=== PATIENT | male | born 1950 | race Caucasian/White ===

== ENCOUNTER 2019-09-28 02:54 | Inpatient (IN) | payer MEDICARE, BC ==
[2019-09-28] MEDS ORDERED: IPRATROPIUM-ALBUTEROL 3 ML NEB INHALATION PRN (03:05)
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
[2019-09-28 06:36] LABS: Glucose,Whole Blood 186 mg/dL (75-99)
[2019-09-28] MEDS: GLIMEPIRIDE 2 MG TAB PO SCH (06:36)
[2019-09-28] MEDS: ATORVASTATIN 20 MG TAB PO SCH (07:35)
[2019-09-28] MEDS: amLODIPine 10 MG TAB PO SCH (07:35)
[2019-09-28] MEDS: TAMSULOSIN 0.4 MG CAP.ER.24H PO SCH (07:36)
[2019-09-28] MEDS: ASPIRIN 81 MG PO SCH (07:36)
[2019-09-28] MEDS ORDERED: predniSONE 20 MG TAB PO SCH (09:00)
[2019-09-28] MEDS ORDERED: metFORMIN 500 MG TAB PO SCH (09:00)
[2019-09-28] MEDS ORDERED: methylPREDNISolone SOD SUCCI 125 MG/2 ML VIAL IV SCH (09:00)
[2019-09-28] MEDS: methylPREDNISolone SOD SUCCI 125 MG/2 ML VIAL IV SCH ×2 (09:22→17:00)
[2019-09-28] MEDS: FUROSEMIDE 10 MG/ML 4 ML VIAL IV SCH (10:00)
--- NOTE | 2019-09-28 10:23 | XR ---
EXAMINATION TYPE: XR chest 2V DATE OF EXAM: 09/28/2019 HISTORY: dyspnea. REFERENCE: NONE. FINDINGS: There is increased density in the right middle lobe as well as the left lung base. This lik miranda represents limited pneumonia. Heart size upper limits of normal. Pleural spaces are clear. IMPRESSION: BILATERAL INFILTRATES.
[2019-09-28 11:40] LABS: Glucose,Whole Blood 162 mg/dL (75-99)
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
[2019-09-28] MEDS: IPRATROPIUM-ALBUTEROL 3 ML NEB INHALATION SCH ×2 (12:03→19:02)
[2019-09-28] MEDS: INSULIN ASPART (NovoLOG) 100 UNIT/ML VIAL SQ SCH ×3 (12:19→20:58)
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
--- NOTE | 2019-09-28 13:38 | P.PN ---
Progress Note - Text Progress Note Date: 09/28/19 Consult for PV work up appreciated. Labs pending, formal consult in AM.
[2019-09-28 13:55] LABS: Basophils % (A) 0 %; Eosinophils # (A) 0.1 k/uL (0-0.7); Eosinophils % (A) 1 %; Lymphocytes # (A) 0.8 k/uL (1.0-4.8); Lymphocytes % (A) 9 %; MCH 32.1 pg (25.0-35.0); MCHC 34.2 g/dL (31.0-37.0); MCV 93.8 fL (80.0-100.0); Mean Platelet Volume 8.9; Monocytes # (A) 0.2 k/uL (0-1.0); Monocytes % (A) 3 %; Neutrophils # (A) 8.3 k/uL (1.3-7.7); Neutrophils % (A) 88 %; Platelet Count 141 k/uL (150-450); Potassium 4.6 mmol/L (3.5-5.1); RBC 5.98 m/uL (4.30-5.90); RDW 13.4 % (11.5-15.5); WBC 9.4 k/uL (3.8-10.6)
[2019-09-28 13:57] LABS: HCT 56.1 % (39.0-53.0)
[2019-09-28 13:59] LABS: HGB 19.2 gm/dL (13.0-17.5)
[2019-09-28 14:02] LABS: Reticulocyte % 2.9 % (0.5-2.0)
--- NOTE | 2019-09-28 15:26 | CT ---
CT CHEST FOR PULMONARY EMBOLISM. EXAMINATION TYPE: CT angio chest DATE OF EXAM: 09/28/2019 INDICATION: Hypoxemia, suspect PE. CT DLP: 666.3 mGycm, Automated exposure control for dose reduction was used. CONTRAST: Patient injected with 100 mL of Isovue 370. COMPARISON: None TECHNIQUE: CT of the chest is performed on a spiral scan at 2 mm thick sections. Study is performed with intravenous contrast timed for evaluation for pulmonary embolism. This will limit additional po rtions of the evaluation. 3-D MIP images reconstructed by the technologist are reviewed on the compu ter in the coronal and sagittal planes. FINDINGS: No persistent filling defects are evident to suggest an acute pulmonary embolism. No mediastinal or hilar adenopathy enlarged by CT criteria is evident. The ascending aorta diameter at the level of the main pulmonary artery is 3.5 cm. The main pulmonary artery diameter at the bifur cation is 3.2 cm. Mild compressive atelectasis is present within the dependent lung bases. Limited CT section through the upper abdomen are unremarkable. IMPRESSIONS: 1. No suspicious changes to suggest acute pulmonary embolism.
[2019-09-28 16:53] LABS: Glucose,Whole Blood 200 mg/dL (75-99)
[2019-09-28] MEDS: BUDESONIDE 0.5 MG/2 ML NEBU INHALATION SCH (19:02)
[2019-09-28 20:53] LABS: Glucose,Whole Blood 259 mg/dL (75-99)
[2019-09-28] MEDS: HEPARIN SODIUM,PORCINE 5,000 UNIT/ML 1 ML VIAL SQ SCH (20:59)
[2019-09-29] MEDS: methylPREDNISolone SOD SUCCI 125 MG/2 ML VIAL IV SCH ×5 (00:15→22:54)
[2019-09-29 06:00] LABS: Glucose,Whole Blood 225 mg/dL (75-99)
[2019-09-29] MEDS: INSULIN ASPART (NovoLOG) 100 UNIT/ML VIAL SQ SCH ×6 (06:11→22:55)
[2019-09-29] MEDS: PANTOPRAZOLE 40 MG TABLET PO SCH (06:11)
[2019-09-29] MEDS: GLIMEPIRIDE 2 MG TAB PO SCH (06:11)
[2019-09-29] MEDS ORDERED: INSULIN DETEMIR (LEVEMIR) 100 UNIT/ML SYR SQ SCH (07:00)
[2019-09-29 07:41] LABS: ALT 24 U/L (4-49); AST 25 U/L (17-59); African American GFR (CKD) >90 (>60 ml/min/1.73 sqM); Alkaline Phosphatase 68 U/L (38-126); Anion Gap 9 mmol/L; Blood Urea Nitrogen 44 mg/dL (9-20); Carbon Dioxide 26 mmol/L (22-30); Chloride 99 mmol/L (98-107); Glucose 222 mg/dL (74-99); Non-African American GFR(CKD) 79 (>60 ml/min/1.73 sqM); Potassium 4.4 mmol/L (3.5-5.1); Sodium 134 mmol/L (137-145); Total Protein 7.1 g/dL (6.3-8.2)
[2019-09-29 07:46] LABS: HCT 54.4 % (39.0-53.0); HGB 18.1 gm/dL (13.0-17.5); MCHC 33.2 g/dL (31.0-37.0); MCV 93.4 fL (80.0-100.0); Mean Platelet Volume 8.6; Platelet Count 159 k/uL (150-450); RBC 5.82 m/uL (4.30-5.90); RDW 13.4 % (11.5-15.5); WBC 11.4 k/uL (3.8-10.6)
[2019-09-29] MEDS: ASPIRIN 81 MG PO SCH (08:56)
[2019-09-29] MEDS: HEPARIN SODIUM,PORCINE 5,000 UNIT/ML 1 ML VIAL SQ SCH ×2 (08:56→22:55)
[2019-09-29] MEDS: amLODIPine 10 MG TAB PO SCH (08:56)
[2019-09-29] MEDS: FUROSEMIDE 10 MG/ML 4 ML VIAL IV SCH (08:56)
[2019-09-29] MEDS: TAMSULOSIN 0.4 MG CAP.ER.24H PO SCH (08:56)
[2019-09-29] MEDS: ATORVASTATIN 20 MG TAB PO SCH (08:56)
[2019-09-29] MEDS: IPRATROPIUM-ALBUTEROL 3 ML NEB INHALATION SCH ×3 (09:10→20:38)
[2019-09-29] MEDS: BUDESONIDE 0.5 MG/2 ML NEBU INHALATION SCH ×2 (09:10→20:37)
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
--- NOTE | 2019-09-29 11:58 | ECHOF ---
Referral Reason:LVF MEASUREMENTS -------- HEIGHT: 172.7 cm WEIGHT: 112.0 kg BP: 144/79 IVSd: 1.0 cm (0.6 - 1.1) LVIDd: 4.3 cm (3.9 - 5.3) LVPWd: 1.2 cm (0.6 - 1.1) IVSs: 1.8 cm LVIDs: 1.4 cm LVPWs: 1.5 cm LAESV Index (A-L): 21.01 ml/m Ao Diam: 3.1 cm (2.0 - 3.7) AV Cusp: 1.8 cm (1.5 - 2.6) LA Diam: 2.9 cm (2.7 - 3.8) MV EXCURSION: 16.226 mm (> 18.000) MV EF SLOPE: 83 mm/s (70 - 150) EPSS: 0.6 cm MV E Philip: 0.94 m/s MV DecT: 245 ms MV A Philip: 0.83 m/s MV E/A Ratio: 1.13 RAP: 5.00 mmHg RVSP: 15.17 mmHg FINDINGS -------- Sinus rhythm. This was a technically difficult study with suboptimal views. The left ventricular size is normal. Left ventricular wall thickness is normal. Overall left vent ricular systolic function is normal with, an EF between 55 - 60 %. The diastolic filling pattern is normal for the age of the patient 13.71. The right ventricle is normal in size. The left atrial size is normal. Normal LA size by volume 22+/-6 ml/m2. The right atrial size is normal. Lumason used Interatrial and interventricular septum intact. The aortic valve is trileaflet and appears structurally normal. The mitral valve is normal. Mild mitral regurgitation is present. The tricuspid valve appears structurally normal. Mild tricuspid regurgitation present. Right vent ricular systolic pressure is normal at < 35 mmHg. There is no pulmonic regurgitation present. The aortic root size is normal. IVC Not well visulized. There is no pericardial effusion. CONCLUSIONS -------- 1. Sinus rhythm. 2. This was a technically difficult study with suboptimal views. 3. The left ventricular size is normal. 4. Left ventricular wall thickness is normal. 5. Overall left ventricular systolic function is normal with, an EF between 55 - 60 %. 6. The diastolic filling pattern is normal for the age of the patient 13.71 7. The right ventricle is normal in size. 8. The left atrial size is normal. 9. Normal LA size by volume 22+/-6 ml/m2. 10. The right atrial size is normal. 11. Lumason used 12. Interatrial and interventricular septum intact. 13. The aortic valve is trileaflet and appears structurally normal. 14. The mitral valve is normal. 15. Mild mitral regurgitation is present. 16. The tricuspid valve appears structurally normal. 17. Mild tricuspid regurgitation present. 18. Right ventricular systolic pressure is normal at < 35 mmHg. 19. There is no pulmonic regurgitation present. 20. The aortic root size is normal. 21. IVC Not well visulized. 22. There is no pericardial effusion. MINER: Beatriz Arango RDCS
[2019-09-29 12:01] LABS: Hemoglobin A1C 6.6 % (4.0-6.0)
[2019-09-29 12:04] LABS: Glucose,Whole Blood 258 mg/dL (75-99)
[2019-09-29] MEDS: LINAGLIPTIN 5 MG TABLET PO SCH (12:12)
--- NOTE | 2019-09-29 13:24 | P.CONS ---
History of Present Illness - Reason for Consult Consult date: 09/29/19 PV Requesting physician: Rolando Massey - Chief Complaint SOB, COPD exacerbation - History of Present Illness Mr He is a very pleasant 69-year-old male who we've been asked to see regarding polycythemia. 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 He states shortness of breath on exertion 1 month, otherwise a normal state of health. Denies unintentional weight loss, changes in his appetite, purulent or bloody expectoration, nausea or vomiting, abdominal pain or cramping, acute changes in bowel or bladder habits. Review of Systems 14 point review of systems is negative except as stated in HPI Past Medical History Past Medical History: COPD, Diabetes Mellitus, Hyperlipidemia, Hypertension, Pulmonary Embolus (PE) History of Any Multi-Drug Resistant Organisms: None Reported Past Surgical History: Joint Replacement, Orthopedic Surgery Past Psychological History: No Psychological Hx Reported Smoking Status: Former smoker Past Alcohol Use History: Occasional Additional Past Alcohol Use History / Comment(s): The patient was a smoker for 45 years of 2-3 packs per day and quit 10 years ago. He denies any marijuana or illicit drug use. He drinks alcohol occasionally. He is and lives at home with his . He is retired from [employer]. Past Drug Use History: None Reported - Past Family History Father Additional Family Medical History / Comment(s): Father at age 73 from colon cancer. Mother Additional Family Medical History / Comment(s): Mother at age 80 from heart failure. Brother(s) Additional Family Medical History / Comment(s): The patient has 1 brother that has from consultations from obesity. 2 brothers are alive with no major medical problems. 2 sisters are are alive with no major medical problems. Patient has 5 children with no major medical problems. Medications and Allergies Home Medications Medication Instructions Recorded Confirmed Type Aspirin 81 mg PO DAILY 09/28/19 09/28/19 History Cinnamon Bark [Cinnamon] 1,000 mg PO DAILY 09/28/19 09/28/19 History Glimepiride [Amaryl] 4 mg PO [id number] 09/28/19 09/28/19 History Glucosamine/Chondr Zimmer A Sod [Osteo 1 each PO BID 09/28/19 09/28/19 History Bi-Flex Caplet] Ibuprofen 1,000 mg PO BID 09/28/19 09/28/19 History Lisinopril-Hctz 20-25 mg 1 tab PO DAILY 09/28/19 09/28/19 History [Zestoretic 20-25] Lovastatin [Mevacor] 20 mg PO Q48H 09/28/19 09/28/19 History Nadolol [Corgard] 80 mg PO DAILY 09/28/19 09/28/19 History Tamsulosin [Flomax] 0.4 mg PO DAILY 09/28/19 09/28/19 History amLODIPine [Norvasc] 10 mg PO DAILY 09/28/19 09/28/19 History Allergies Allergy/AdvReac Type Severity Reaction Status Date / Time codeine Allergy Unknown Verified 09/28/19 03:03 Childhood Penicillins Allergy Unknown Verified 09/28/19 03:03 Childhood Physical Exam Vitals: Vital Signs Temp Pulse Pulse Resp BP Pulse Ox 09/29/19 12:00 63 18 168/73 92 L 09/29/19 09:22 68 09/29/19 09:10 67 94 L 09/29/19 08:00 67 18 163/70 92 L 09/29/19 04:00 98.1 F 65 20 144/79 95 09/29/19 03:50 65 18 09/28/19 23:53 98.0 F 64 16 152/65 94 L 09/28/19 20:05 97.9 F 66 18 151/60 91 L 09/28/19 19:19 62 18 09/28/19 19:03 68 18 09/28/19 16:00 98.1 F 73 20 168/65 90 L Intake and Output 09/28/19 09/29/19 09/29/19 22:59 06:59 14:59 Intake Total 236 230 Output Total 675 1450 500 Balance -397 -3397 -787 Intake: Oral 236 230 Output: Urine 675 1450 500 Other: Voiding Method Urinal Urinal # Voids 3 2 Weight 112.2 kg - Constitutional mio complexion General appearance: cooperative, no acute distress, obese - EENT Eyes: anicteric sclerae, EOMI ENT: hearing grossly normal, normal oropharynx - Neck Neck: no lymphadenopathy - Respiratory Respiratory: bilateral: CTA, diminished - Cardiovascular mild fingernail clubbing Rhythm: regular Heart sounds: normal: S1, S2 Abnormal Heart Sounds: no systolic murmur, no diastolic murmur, no rub, no S3 Gallop, no S4 Gallop, no click, no other leg Peripheral Edema: bilateral: None - Gastrointestinal General gastrointestinal: no absent bowel sounds, no decreased bowel sounds, no distended, no hepatomegaly, no hyperactive bowel sounds, normal bowel sounds, no organomegaly, no rigid, no scaphoid, soft, no splenomegaly, no tenderness, no umbilical hernia, no ventral hernia - Integumentary Integumentary: flushed - Neurologic Neurologic: CNII-XII intact - Musculoskeletal Musculoskeletal: strength equal bilaterally - Psychiatric Psychiatric: A&O x's 3, appropriate affect, intact judgment & insight Results CBC & Chem 7: 09/29/19 05:50 09/29/19 05:49 Labs: Abnormal Lab Results - Last 24 Hours (Table) 09/28/19 09/28/19 09/28/19 Range/Units 13:25 13:25 13:25 WBC (3.8-10.6) k/uL RBC 5.98 H (4.30-5.90) m/uL Hgb 19.2 H* (13.0-17.5) gm/dL Hct 56.1 H (39.0-53.0) % Plt Count 141 L (150-450) k/uL Neutrophils # 8.3 H (1.3-7.7) k/uL Lymphocytes # 0.8 L (1.0-4.8) k/uL Retic Count (0.5-2.0) % Sodium 131 L (137-145) mmol/L Chloride 94 L (98-107) mmol/L Carbon Dioxide 19 L (22-30) mmol/L BUN 41 H (9-20) mg/dL Glucose 172 H (74-99) mg/dL POC Glucose (mg/dL) (75-99) mg/dL Hemoglobin A1c 6.6 H (4.0-6.0) % 09/28/19 09/28/19 09/28/19 Range/Units 13:25 16:51 20:52 WBC (3.8-10.6) k/uL RBC (4.30-5.90) m/uL Hgb (13.0-17.5) gm/dL Hct (39.0-53.0) % Plt Count (150-450) k/uL Neutrophils # (1.3-7.7) k/uL Lymphocytes # (1.0-4.8) k/uL Retic Count 2.9 H (0.5-2.0) % Sodium (137-145) mmol/L Chloride (98-107) mmol/L Carbon Dioxide (22-30) mmol/L BUN (9-20) mg/dL Glucose (74-99) mg/dL POC Glucose (mg/dL) 200 H 259 H (75-99) mg/dL Hemoglobin A1c (4.0-6.0) % 09/29/19 09/29/19 09/29/19 Range/Units 05:49 05:50 05:59 WBC 11.4 H (3.8-10.6) k/uL RBC (4.30-5.90) m/uL Hgb 18.1 H (13.0-17.5) gm/dL Hct 54.4 H (39.0-53.0) % Plt Count (150-450) k/uL Neutrophils # (1.3-7.7) k/uL Lymphocytes # (1.0-4.8) k/uL Retic Count (0.5-2.0) % Sodium 134 L (137-145) mmol/L Chloride (98-107) mmol/L Carbon Dioxide (22-30) mmol/L BUN 44 H (9-20) mg/dL Glucose 222 H (74-99) mg/dL POC Glucose (mg/dL) 225 H (75-99) mg/dL Hemoglobin A1c (4.0-6.0) % 09/29/19 Range/Units 11:50 WBC (3.8-10.6) k/uL RBC (4.30-5.90) m/uL Hgb (13.0-17.5) gm/dL Hct (39.0-53.0) % Plt Count (150-450) k/uL Neutrophils # (1.3-7.7) k/uL Lymphocytes # (1.0-4.8) k/uL Retic Count (0.5-2.0) % Sodium (137-145) mmol/L Chloride (98-107) mmol/L Carbon Dioxide (22-30) mmol/L BUN (9-20) mg/dL Glucose (74-99) mg/dL POC Glucose (mg/dL) 258 H (75-99) mg/dL Hemoglobin A1c (4.0-6.0) % Chest x-ray: report reviewed CT scan - chest: report reviewed Assessment and Plan (1) Polycythemia Narrative/Plan: Dr. Pringle reviewed with the patient primary and secondary polycythemia, causes of both, prognosis and treatment of both. Patient is currently being worked up for the same. Multiple labs have been ordered. Daily aspirin is already ordered. No phlebotomy at this time. Current Visit: Yes Status: Acute Priority: High Code(s): D75.1 - SECONDARY POLYCYTHEMIA SNOMED Code(s): 506176305 Plan: CTA of the chest, no PE Doctor attests: I performed a history and physical examination of this patient, developed impression and plan of care, discussed with dictator. I agree with dictators note, documented as a scribe.
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
[2019-09-29 15:06] LABS: % Iron Saturation 39.94 (15.00-50.00)
[2019-09-29 15:14] LABS: Ferritin 114.5 ng/mL (22.0-322.0)
[2019-09-29 17:26] LABS: Glucose,Whole Blood 227 mg/dL (75-99)
[2019-09-29 20:39] LABS: Glucose,Whole Blood 313 mg/dL (75-99)
[2019-09-30 06:14] LABS: HGB 18.3 gm/dL (13.0-17.5); MCH 31.3 pg (25.0-35.0); MCHC 33.2 g/dL (31.0-37.0); MCV 94.3 fL (80.0-100.0); Platelet Count 159 k/uL (150-450); RBC 5.83 m/uL (4.30-5.90); RDW 13.6 % (11.5-15.5); WBC 14.8 k/uL (3.8-10.6)
[2019-09-30 06:23] LABS: African American GFR (CKD) >90 (>60 ml/min/1.73 sqM); Anion Gap 8 mmol/L; Blood Urea Nitrogen 42 mg/dL (9-20); Calcium 9.2 mg/dL (8.4-10.2); Carbon Dioxide 29 mmol/L (22-30); Chloride 101 mmol/L (98-107); Glucose 208 mg/dL (74-99); Non-African American GFR(CKD) 83 (>60 ml/min/1.73 sqM); Potassium 4.1 mmol/L (3.5-5.1); Sodium 138 mmol/L (137-145)
[2019-09-30 06:24] LABS: Glucose,Whole Blood 217 mg/dL (75-99)
[2019-09-30] MEDS: GLIMEPIRIDE 2 MG TAB PO SCH (06:41)
[2019-09-30] MEDS: methylPREDNISolone SOD SUCCI 125 MG/2 ML VIAL IV SCH (06:41)
[2019-09-30] MEDS: PANTOPRAZOLE 40 MG TABLET PO SCH (06:41)
[2019-09-30] MEDS: INSULIN ASPART (NovoLOG) 100 UNIT/ML VIAL SQ SCH ×7 (06:42→22:27)
[2019-09-30] MEDS: IPRATROPIUM-ALBUTEROL 3 ML NEB INHALATION SCH ×3 (09:47→20:16)
[2019-09-30] MEDS: BUDESONIDE 0.5 MG/2 ML NEBU INHALATION SCH ×2 (09:47→20:16)
[2019-09-30] MEDS: TAMSULOSIN 0.4 MG CAP.ER.24H PO SCH (10:09)
[2019-09-30] MEDS: ASPIRIN 81 MG PO SCH (10:13)
[2019-09-30] MEDS: acetaZOLAMIDE 250 MG TAB PO SCH ×2 (10:13→22:26)
[2019-09-30] MEDS: FUROSEMIDE 10 MG/ML 4 ML VIAL IV SCH (10:13)
[2019-09-30] MEDS: amLODIPine 10 MG TAB PO SCH (10:13)
[2019-09-30] MEDS: ATORVASTATIN 20 MG TAB PO SCH (10:13)
[2019-09-30] MEDS: LINAGLIPTIN 5 MG TABLET PO SCH (10:14)
[2019-09-30] MEDS: NADOLOL 20 MG TAB PO SCH (10:14)
[2019-09-30] MEDS: HEPARIN SODIUM,PORCINE 5,000 UNIT/ML 1 ML VIAL SQ SCH ×2 (10:14→22:26)
[2019-09-30] MEDS: LISINOPRIL-HCTZ 20-25 MG 1 EACH TAB PO SCH (10:14)
[2019-09-30 10:37] LABS: Carbon Monoxide 1.6 % (<10.0)
[2019-09-30 11:15] VITALS: RESP 18
[2019-09-30 11:44] LABS: Glucose,Whole Blood 190 mg/dL (75-99)
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
--- NOTE | 2019-09-30 13:18 | P.PN ---
Subjective Progress Note Date: 09/30/19 Principal diagnosis: polycythemia in follow-up today patient is sitting in a chair, his oxygen needs are slowly decreasing, he states improvement in his breathing since admission. Denies chest pain, headache, claudication. Objective - Vital Signs Vital signs: Vital Signs Temp 98.2 F 09/30/19 08:00 Pulse 62 09/30/19 13:02 Resp 18 09/30/19 11:15 BP 151/72 09/30/19 11:15 Pulse Ox 91 L 09/30/19 11:15 Intake & Output 09/29/19 09/30/19 09/30/19 18:59 06:59 18:59 Intake Total 452 222 120 Output Total 1100 500 Balance -648 222 -380 Weight 109.2 kg Intake: Oral 452 222 120 Output: Urine 1100 500 Other: Voiding Method Urinal # Voids 2 1 1 - Constitutional General appearance: Present: cooperative, no acute distress, obese - EENT EENT Comment(s): bloodshot sclera Eyes: Present: anicteric sclerae, EOMI - Respiratory Respiratory: bilateral: diminished - Cardiovascular Heart sounds: normal: S1, S2 Abnormal Heart Sounds: Absent: systolic murmur, diastolic murmur, rub, S3 Gallop, S4 Gallop, click, other - Peripheral edema leg Peripheral Edema: bilateral: None - Gastrointestinal General gastrointestinal: Present: normal bowel sounds - Integumentary Integumentary Comment(s): Whittaker facial complexion - Neurologic Neurologic: Present: CNII-XII intact - Musculoskeletal Musculoskeletal: Present: strength equal bilaterally - Psychiatric Psychiatric: Present: A&O x's 3, appropriate affect, intact judgment & insight - Labs CBC & Chem 7: 09/30/19 05:49 09/30/19 05:49 Labs: Abnormal Lab Results - Last 24 Hours (Table) 09/29/19 09/29/19 09/30/19 Range/Units 17:18 20:38 05:49 WBC 14.8 H (3.8-10.6) k/uL Hgb 18.3 H (13.0-17.5) gm/dL Hct 55.0 H (39.0-53.0) % BUN (9-20) mg/dL Glucose (74-99) mg/dL POC Glucose (mg/dL) 227 H 313 H (75-99) mg/dL 09/30/19 09/30/19 09/30/19 Range/Units 05:49 06:23 11:43 WBC (3.8-10.6) k/uL Hgb (13.0-17.5) gm/dL Hct (39.0-53.0) % BUN 42 H (9-20) mg/dL Glucose 208 H (74-99) mg/dL POC Glucose (mg/dL) 217 H 190 H (75-99) mg/dL Assessment and Plan (1) Polycythemia Narrative/Plan: Pt respiratory status is much better with treatment of COPD exacerbation. Hgb/Hct stable. Work up orderd, pending khari 2 mutation, iron stores are normal. No phlebotomy yet. Daily aspirin ordered. Current Visit: Yes Status: Acute Priority: High Code(s): D75.1 - SECONDARY POLYCYTHEMIA SNOMED Code(s): 178314172
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
[2019-09-30 16:52] LABS: Glucose,Whole Blood 189 mg/dL (75-99)
[2019-09-30] MEDS: methylPREDNISolone SOD SUCCI 40 MG/ML 1 ML VIAL IV SCH ×2 (17:23→22:29)
[2019-09-30 20:34] LABS: Glucose,Whole Blood 197 mg/dL (75-99)
[2019-10-01 06:16] LABS: Glucose,Whole Blood 181 mg/dL (75-99)
[2019-10-01] MEDS: GLIMEPIRIDE 2 MG TAB PO SCH (07:13)
[2019-10-01] MEDS: INSULIN ASPART (NovoLOG) 100 UNIT/ML VIAL SQ SCH ×2 (07:13→07:15)
[2019-10-01] MEDS: PANTOPRAZOLE 40 MG TABLET PO SCH (07:13)
[2019-10-01 08:01] VITALS: BP 133/67; TEMP 97.8
[2019-10-01] MEDS: BUDESONIDE 0.5 MG/2 ML NEBU INHALATION SCH (08:35)
[2019-10-01] MEDS: IPRATROPIUM-ALBUTEROL 3 ML NEB INHALATION SCH ×2 (08:35→12:06)
[2019-10-01] MEDS: acetaZOLAMIDE 250 MG TAB PO SCH (09:23)
[2019-10-01] MEDS: methylPREDNISolone SOD SUCCI 40 MG/ML 1 ML VIAL IV SCH (09:23)
[2019-10-01] MEDS: HEPARIN SODIUM,PORCINE 5,000 UNIT/ML 1 ML VIAL SQ SCH (09:23)
[2019-10-01] MEDS: amLODIPine 10 MG TAB PO SCH (09:23)
[2019-10-01] MEDS: TAMSULOSIN 0.4 MG CAP.ER.24H PO SCH (09:24)
[2019-10-01] MEDS: LINAGLIPTIN 5 MG TABLET PO SCH (09:24)
[2019-10-01] MEDS: ATORVASTATIN 20 MG TAB PO SCH (09:24)
[2019-10-01] MEDS: ASPIRIN 81 MG PO SCH (09:24)
[2019-10-01] MEDS: FUROSEMIDE 10 MG/ML 4 ML VIAL IV SCH (09:25)
[2019-10-01] MEDS: NADOLOL 20 MG TAB PO SCH (09:30)
[2019-10-01] MEDS: LISINOPRIL-HCTZ 20-25 MG 1 EACH TAB PO SCH (09:30)
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
[2019-10-01 12:08] VITALS: PULSE 60
--- NOTE | 2019-10-01 16:39 | P.PN ---
Subjective Progress Note Date: 10/01/19 Principal diagnosis: polycythemia In follow-up today patient is sitting in a chair, his oxygen needs are slowly decreasing but, he is for now dependent. He has no physical c/o today. Objective - Vital Signs Vital signs: Vital Signs Temp 97.8 F 10/01/19 07:58 Pulse 60 10/01/19 12:20 Resp 18 10/01/19 08:00 BP 133/67 10/01/19 07:58 Pulse Ox 95 10/01/19 09:00 Intake & Output 09/30/19 10/01/19 10/01/19 18:59 06:59 18:59 Intake Total 720 240 Output Total 500 500 Balance 220 -500 240 Intake: Oral 720 240 Output: Urine 500 500 Other: Voiding Method Urinal Urinal # Voids 1 - Constitutional General appearance: Present: cooperative, no acute distress, obese - EENT Eyes: Present: anicteric sclerae, EOMI ENT: Present: hearing grossly normal - Respiratory Respiratory: bilateral: CTA, diminished - Cardiovascular Rhythm: regular Heart sounds: normal: S1, S2 - Integumentary Integumentary Comment(s): mio complexion - Neurologic Neurologic: Present: CNII-XII intact - Musculoskeletal Musculoskeletal: Present: strength equal bilaterally - Psychiatric Psychiatric: Present: A&O x's 3, appropriate affect, intact judgment & insight - Labs CBC & Chem 7: 09/30/19 05:49 09/30/19 05:49 Labs: Abnormal Lab Results - Last 24 Hours (Table) 09/30/19 09/30/19 10/01/19 Range/Units 16:51 20:32 06:14 POC Glucose (mg/dL) 189 H 197 H 181 H (75-99) mg/dL Assessment and Plan (1) Polycythemia Narrative/Plan: Pt respiratory status is much better with treatment of COPD exacerbation. He is going home with O2, pulmonary medications. Hgb/Hct stable. No CO toxicity, Hgb electrophoresis did not show any variants, epo is low, iron studies are normal, still pending khari 2 mutation. After all results received will contact pt is felt he could benefit from phlebotomy. Will recheck Hgb/Hct at that time to see if any changes with O2 and pulm medications Agree with daily aspirin. Status: Acute Priority: High Code(s): D75.1 - SECONDARY POLYCYTHEMIA SNOMED Code(s): 076242655 Plan: CTA of the chest, no PE
== END 2019-10-01 12:36 | disposition home or self-care (01) | DRG 190 ==
LOC: EC 02:54 → 3SCARD 03:07
PROVIDERS: ADMIT Internal Medicine Geriatric Medicine; ATTEND Internal Medicine Geriatric Medicine
PROC: 5A09357 Assistance with Respiratory Ventilation, Less than 24 Consecutive Hours, Continuous Positive Airway Pressure (ICD-10-PCS; principal; 2019-09-28)
DX: J44.1 Chronic obstructive pulmonary disease with (acute) exacerbation (principal); J96.21 Acute and chronic respiratory failure with hypoxia; D75.1 Secondary polycythemia; E11.65 Type 2 diabetes mellitus with hyperglycemia; T38.0X5A Adverse effect of glucocorticoids and synthetic analogues, initial encounter; E66.01 Morbid (severe) obesity due to excess calories; Z68.36 Body mass index [BMI] 36.0-36.9, adult; E78.5 Hyperlipidemia, unspecified; E87.70 Fluid overload, unspecified; I10 Essential (primary) hypertension; N40.0 Benign prostatic hyperplasia without lower urinary tract symptoms; W19.XXXA Unspecified fall, initial encounter; Z20.828 Contact with and (suspected) exposure to other viral communicable diseases; J70.5 Respiratory conditions due to smoke inhalation; Z79.82 Long term (current) use of aspirin; Z79.84 Long term (current) use of oral hypoglycemic drugs; Z79.899 Other long term (current) drug therapy; Z80.0 Family history of malignant neoplasm of digestive organs; Z82.49 Family history of ischemic heart disease and other diseases of the circulatory system; Z86.711 Personal history of pulmonary embolism; Z87.891 Personal history of nicotine dependence; Z88.5 Allergy status to narcotic agent; Z88.0 Allergy status to penicillin; G47.33 Obstructive sleep apnea (adult) (pediatric); T59.811A Toxic effect of smoke, accidental (unintentional), initial encounter
CPT/HCPCS: 71046; 71275; 80048; 80053; 81270; 82375; 82668; 82728; 83021; 83036; 83050; 83540; 83550; 85025; 85027; 85045; 93306; 94640; 94660; 94760; 99285

== ENCOUNTER 2021-02-28 06:30 | Day surgery (SDC) | payer MEDICARE, BC ==
[2021-02-23 14:32] VITALS: BMI 35.7
[~2021-02-28 06:30] MED LIST: ALPRAZolam 0.25 MG TAB PO PRN; ALPRAZolam 0.5 MG TAB PO PRN; ASPIRIN 325 MG TAB PO STA; ATORVASTATIN 80 MG TAB PO STA; NITROGLYCERIN SL TABS 0.4 MG TAB SUBLINGUAL PRN; SODIUM CHLORIDE 0.9% 1,000 ML in EMPTY BAG 1 BAG IV SCH
[2021-02-28] MEDS ORDERED: SODIUM CHLORIDE 0.9% 1,000 ML IV ONE (06:45)
[2021-02-28 07:02] LABS: Glucose,Whole Blood 154 mg/dL (75-99)
[2021-02-28 07:04] VITALS: RESP 16; TEMP 98.2
[2021-02-28] MEDS ORDERED: LIDOCAINE 1% INJ 10MG/ML (20 ML MDV) ONE (07:11)
[2021-02-28] MEDS ORDERED: VERAPAMIL 2.5 MG/ML 2 ML AMP ONE (07:12)
[2021-02-28] MEDS ORDERED: LIDOCAINE 1% INJ 10MG/ML (20 ML MDV) SQ ONE (07:45)
[2021-02-28] MEDS ORDERED: HEPARIN SODIUM 1,000 UN/ML (10ML VL) ONE (07:45)
[2021-02-28] MEDS ORDERED: VERAPAMIL SYRINGE (5 MG/10 ML) INTRAARTER ONE (07:46)
[2021-02-28] MEDS: HEPARIN SODIUM 1,000 UN/ML (10ML VL) IV ONE ×2 (07:48→07:58)
[2021-02-28] MEDS ORDERED: MIDAZOLAM 2 MG/2 ML VIAL IV ONE (07:48)
[2021-02-28] MEDS ORDERED: CLOPIDOGREL 75 MG TAB ONE (07:57)
[2021-02-28] MEDS ORDERED: CLOPIDOGREL 75 MG TAB PO ONE (08:03)
[2021-02-28] MEDS ORDERED: IOPAMIDOL-370 125ML BTL INJ ONE (08:08)
[2021-02-28] MEDS ORDERED: MENTHOL TOPICAL PRN (08:14)
[2021-02-28] MEDS ORDERED: ALBUTEROL HFA INHALER INHALATION PRN (08:14)
[2021-02-28] MEDS ORDERED: NON FORMULARY DRUG (Lovastatin 20 MG Tab) PO SCH (08:15)
[2021-02-28] MEDS ORDERED: MAG HYDROX/AL HYDROX/SIMETH 30 ML CUP PO PRN (08:16)
[2021-02-28] MEDS ORDERED: RX INFO: IV CONTRAST WAS GIVEN 1 EACH MISC MISCELLANE PRN (08:16)
[2021-02-28] MEDS ORDERED: NITROGLYCERIN SL TABS 0.4 MG TAB SUBLINGUAL PRN (08:16)
[2021-02-28] MEDS ORDERED: ZOLPIDEM 5 MG TAB PO PRN (08:16)
[2021-02-28] MEDS ORDERED: ATROPINE SULFATE 0.1 MG/ML 10ML SYRINGE IV PRN (08:16)
[2021-02-28] MEDS ORDERED: SODIUM CHLORIDE 0.9% 1,000 ML IV SCH (08:30)
--- NOTE | 2021-02-28 08:55 | CC ---
CARDIAC CATHETERIZATION REPORT DATE OF SERVICE: February 28, 2021. PERFORMING PHYSICIAN: Kyler Matt MD. PROCEDURE PERFORMED: 1. Selective right and left coronary angiogram. 2. Left heart catheterization. INDICATION: This is a 71-year-old gentleman with hypertension and dyslipidemia who was experiencing chest discomfort and underwent myocardial perfusion imaging stress test and that revealed inferolateral ischemia. He was brought today to undergo a heart catheterization. APPROACH: Right radial artery. COMPLICATION: None. LEVEL OF SEDATION: Moderate with sedation length of 26 minutes. PROCEDURE DESCRIPTION: After obtaining informed consent, the patient was brought to the cardiac laborer [facility]. The right radial artery was cannulated using micropuncture technique under ultrasound guidance, the micropuncture wire passed easily. Then I placed a 6-[place] sheath at the right radial artery. I gave the patient 2 mg of verapamil IA and initially 6000 units of heparin IV, with additional 6000 after we decided to pursue with intervention. A CT monitoring was performed throughout the procedure. After that I did selective right and left coronary angiogram with JR4 and JL3.5 catheters. The left heart catheterization was performed using the JR4 catheter which crossed the aortic valve. Then I did pullback across aortic valve. After that, I did intervene on the RCA. Please see a separate paragraph for that. SELECTIVE CORONARY ANGIOGRAM: 1. The right coronary artery is a large-caliber vessel. It is a dominant vessel. The RCA proximally appeared to be angiographically normal. The mid RCA has a lesion tubular appeared to be in the range of 70%. The lesion fit the ischemia by myocardial perfusion imaging stress test. The RCA distally appeared to be angiographically normal and bifurcates into PDA and PLV branches. Both appeared to be angiographically normal. 2. The left main is angiographically normal. The left main bifurcates into left circumflex and left anterior descending artery. The left main appeared to have mild disease only. It bifurcates into LCX and ramus intermedius and left anterior descending artery. 3. The left circumflex is a large-caliber vessel. It is angiographically normal. 4. The ramus intermedius appeared to be a large caliber vessel and seems to be angiographically normal. 5. The LAD appeared to be angiographically normal as well. The LAD gives rise into a diagonal branch which is small caliber vessel in the mid portion and that seems to be angiographically normal. HEMODYNAMICS: The LVEDP was about 10 to 12 mmHg without significant gradient across the aortic valve. Subsequently I did engage the RCA using JR4 guide. I did wire the right coronary artery using a run-through wire. After that I did direct stenting using 4.0 x 18 mm Xience drug-eluting stent where the stent was positioned under fluoroscopy guidance and deployed under 16 atmospheres for 20 seconds. The following angiogram showed that the stent appeared to be slightly under deployed and because of that I decided to post dilate. I dilated using 4.5 mm balloon which was inflated under 18 atmospheres for 20 seconds. The following angiogram showed good angiographic results and the procedure was completed without any complication. CONCLUSION: 1. Chest discomfort in this gentleman, intermittent episodes of chest discomfort in this 71-year-old gentleman with diabetes and hypertension and dyslipidemia who underwent myocardial perfusion imaging stress test and that revealed inferolateral ischemia. 2. Severe disease involving the mid right coronary artery with a tubular lesion. I did successful stenting of the RCA with good angiographic results and PASCALE-3 flow. 3. Mild disease involving the left coronary system. 4. Normal left-sided filling pressure. POSTPROCEDURE MANAGEMENT: Medical treatment and follow up with the patient. MMODL / IJN: [id number] /
[2021-02-28] MEDS ORDERED: NADOLOL 40 MG PO SCH (09:00)
[2021-02-28] MEDS ORDERED: amLODIPine 10 MG TAB PO SCH (09:00)
[2021-02-28] MEDS ORDERED: LISINOPRIL-HCTZ 20-25 MG 1 EACH TAB PO SCH (09:00)
[2021-02-28] MEDS ORDERED: TAMSULOSIN 0.4 MG CAP.ER.24H PO SCH (09:00)
[2021-02-28] MEDS ORDERED: BUDESONIDE 0.5 MG/2 ML NEBU INHALATION SCH (09:00)
[2021-02-28] MEDS ORDERED: NON FORMULARY DRUG (Umeclidinium Brm/Vilanterol Tr [Anoro Ellipta 62.5-25 Mcg Inh] 1 EACH INHALATION SCH (09:00)
[2021-02-28 13:30] VITALS: PULSE 65
[2021-02-28 14:50] VITALS: BP 136/75
[2021-02-28] MEDS ORDERED: ASPIRIN 81 MG PO SCH (21:00)
[2021-03-01] MEDS ORDERED: GLIMEPIRIDE 4 MG TAB PO SCH (07:30)
[2021-03-01] MEDS ORDERED: CLOPIDOGREL 75 MG TAB PO SCH (09:00)
== END 2021-02-28 14:55 | disposition home or self-care (01) ==
LOC: CATHCVL 06:30
PROVIDERS: ATTEND Internal Medicine Interventional Cardiology
DX: I25.10 Atherosclerotic heart disease of native coronary artery without angina pectoris (principal); I10 Essential (primary) hypertension; E78.5 Hyperlipidemia, unspecified; E11.9 Type 2 diabetes mellitus without complications; J44.9 Chronic obstructive pulmonary disease, unspecified; J98.4 Other disorders of lung; Z20.822 Contact with and (suspected) exposure to COVID-19; R94.39 Abnormal result of other cardiovascular function study; Z79.899 Other long term (current) drug therapy; E66.9 Obesity, unspecified; Z68.36 Body mass index [BMI] 36.0-36.9, adult; Z72.0 Tobacco use; Z79.84 Long term (current) use of oral hypoglycemic drugs; Z79.82 Long term (current) use of aspirin; Z88.5 Allergy status to narcotic agent; Z88.0 Allergy status to penicillin
CPT/HCPCS: 93458; 87635; C9600; C1887; C1894; C1725; C1769; C1874; J2250; J2001; J1644; Q9967

== ENCOUNTER → 2021-09-30 | Outpatient (CLI) | payer MEDICARE, BC ==
--- NOTE | 2021-09-30 15:18 | CT ---
EXAMINATION TYPE: CT angio chest DATE OF EXAM: 09/30/2021 2:30 PM COMPARISON: 09/28/2019 HISTORY: COPD CT DLP: 526.50 mGycm Automated exposure control for dose reduction was used. CONTRAST: CTA scan of the thorax is performed with IV Contrast, patient injected with 92 mL of Isovue 370, pulm onary embolism protocol. 3-D postprocessing was performed.. FINDINGS: There is diffuse fine reticular nodular pattern throughout both lungs and there is mild scattered marce undglass density in the left lung base. There is persistent hilar adenopathy essentially unchanged co mpared to previous. There is no airspace consolidation. There is no pleural effusion, pleural thicken ing or pneumothorax. The great vessels the chest are normal is no aneurysm. There are no filling defects within the pulmon raul arteries or branches to suggest pulmonary embolism. There is a small hiatal hernia. Limited scanning through the upper abdomen reveals no gross abnormali ty. The osseous structures are intact. IMPRESSION: 1. No evidence of pulmonary embolism. 2. Diffuse fine reticular nodular pattern throughout both lungs and mild groundglass density in the left lower lobe suggestive of interstitial lung disease 3. Persistent mediastinal and hilar adenopathy
== END | disposition home or self-care (01) ==
LOC: RADCTMAIN 13:03
PROVIDERS: ATTEND Internal Medicine Critical Care Medicine
DX: J98.4 Other disorders of lung (principal); R59.0 Localized enlarged lymph nodes; R91.8 Other nonspecific abnormal finding of lung field; J44.9 Chronic obstructive pulmonary disease, unspecified
CPT/HCPCS: 82565; 84520; 71275; 36415; Q9967

== ENCOUNTER → 2022-04-10 | Outpatient (CLI) | payer MEDICARE, BC ==
--- NOTE | 2022-04-10 12:17 | CA ---
Transthoracic Echo Report Name: Elbert He Age: 72 Gender: M : 1950 Exam Date: 04/10/2022 10:20 Exam Location: [facility] Ht (in): 68 Wt (lb): 230 Ordering Physician: Norah Shukla MD Attending/Referring Phys: Wool Hanker Leslie Quezada RDCS Procedure CPT: Indications: J44.1 CHRONIC OBSTRUCTIVE PULMONARY DISEASE W (ACU Cardiac Hx: Technical Quality: Fair Contrast 1: Total Dose (mL): Contrast 2: Total Dose (mL): MEASUREMENTS (Male / Female) Normal Values 2D ECHO LV Diastolic Diameter PLAX 4.2 cm 4.2 - 5.9 / 3.9 - 5.3 cm LV Systolic Diameter PLAX 2.3 cm IVS Diastolic Thickness 1.3 cm 0.6 - 1.0 / 0.6 - 0.9 cm LVPW Diastolic Thickness 1.1 cm 0.6 - 1.0 / 0.6 - 0.9 cm LV Relative Wall Thickness 0.6 RV Internal Dim ED PLAX 4.0 cm LA Volume 42.3 cm??? 18 - 58 / 22 - 52 cm??? M-MODE Aortic Root Diameter MM 2.6 cm LA Systolic Diameter MM 4.1 cm LA Ao Ratio MM 1.6 AV Cusp Separation MM 1.8 cm DOPPLER AV Peak Velocity 128.5 cm/s AV Peak Gradient 6.6 mmHg LVOT Peak Velocity 106.4 cm/s LVOT Peak Gradient 4.5 mmHg MV Area PHT 2.2 cm??? Mitral E Point Velocity 48.7 cm/s Mitral A Point Velocity 90.4 cm/s Mitral E to A Ratio 0.5 MV Deceleration Time 348.1 ms MV E' Velocity 4.3 cm/s Mitral E to MV E' Ratio 11.4 TR Peak Velocity 479.1 cm/s TR Peak Gradient 91.8 mmHg Right Ventricular Systolic Press 96.8 mmHg FINDINGS Left Ventricle Mildly increased left ventricular wall thickness. Normal left ventricular systolic function with no obvious regional wall motion abnormalities. Left ventricular ejection fraction is estimated at 55 %. Right Ventricle Severe right ventricular dilatation. Severe pulmonary hypertension. Right ventricular systolic pressure estimated at 97 mm hg. Right Atrium Mild right atrial dilatation. Left Atrium Left atrial size at the upper limits of normal. Mitral Valve Structurally normal mitral valve. No mitral stenosis, regurgitation or prolapse. Aortic Valve No aortic valve stenosis or regurgitation. Tricuspid Valve Structurally normal tricuspid valve. Severe tricuspid regurgitation. Pulmonic Valve Trace pulmonic regurgitation. Pericardium No pericardial effusion. Aorta Normal size aortic root and proximal ascending aorta. CONCLUSIONS Normal left ventricular dimension and systolic function Severe pulmonary hypertension Severe right ventricular dilation Severe tricuspid regurgitation Previewed by: Dr. Kyler Matt MD (Electronically Signed) Final Date: 10 April 2022 12:16
--- NOTE | 2022-04-10 17:56 | CT ---
EXAMINATION TYPE: CT chest wo con DATE OF EXAM: 04/10/2022 COMPARISON: 09/30/2021 HISTORY: copd CT DLP: 1834.30 mGycm, Automated exposure control for dose reduction was used. CONTRAST: None TECHNIQUE: Axial images were obtained at 1 mm thick sections at 10 mm intervals. This will limit po rtions of the examination which may not be visualized within the [id number]. Images were obtained in the prone and supine views. FINDINGS: Portion of the thyroid visualized is normal. There may be a tiny 0.4 cm nodule in the periphery left midlung. Series 4 image 14. There are couple of calcifications in the inferior lateral right lung base compatible calcified granuloma. Some dependent atelectasis is demonstrated with prone and supine imaging There is a prominent mediastinal lymph node in the pretracheal space measuring 1.3 cm. There is a 1. 1 cm lymph node adjacent to the aortic arch. Additional lesions present which was marked by CT criter ia. The ascending aorta diameter at the level of the main pulmonary artery is 3.3 cm. The main pulmo nary artery diameter at the bifurcation is 3.6 cm. Correlate for pulmonary hypertension. Coronary art mati calcification is noted. Limited CT sections are obtained through the upper abdomen. Abdomen is essentially unremarkable. IMPRESSIONS: 1. Tiny nodule may be in the periphery of the left upper lung field. Follow-up CT chest exam in 6 mon ths can be performed. 2. Couple of enlarged mediastinal lymph nodes. Consider additional workup for this finding.
== END | disposition home or self-care (01) ==
LOC: RADECHMAIN 09:46
PROVIDERS: ATTEND Internal Medicine Critical Care Medicine
DX: J44.1 Chronic obstructive pulmonary disease with (acute) exacerbation (principal); R59.0 Localized enlarged lymph nodes; R91.1 Solitary pulmonary nodule
CPT/HCPCS: 71250; 93306

== ENCOUNTER → 2022-05-23 | Outpatient (CLI) | payer MEDICARE, BC ==
[2022-05-23 22:40] LABS: African American GFR (CKD) 48.8 (60.0-200.0); Albumin 4.7 g/dL (3.8-4.9); Albumin/Globulin Ratio 1.57 (1.60-3.17); Anion Gap 14.5 mmol/L (10.00-18.00); BUN/Creat Ratio 29.56 Ratio (12.00-20.00); Blood Urea Nitrogen 47.3 mg/dL (9.0-27.0); Calcium 10.1 mg/dL (8.7-10.3); Carbon Dioxide 25.5 mmol/L (20.0-27.5); Non-African American GFR(CKD) 42.1 (60.0-200.0); Potassium 3.7 mmol/L (3.5-5.5); Total Bilirubin 0.7 mg/dL (0.30-1.20); Total Protein 7.7 g/dL (6.2-8.2)
== END | disposition home or self-care (01) ==
LOC: LABWHC1 15:06
PROVIDERS: ATTEND Nurse Practitioner Adult Health
DX: R79.89 Other specified abnormal findings of blood chemistry (principal)
CPT/HCPCS: 36415; 80053

== ENCOUNTER 2022-05-24 10:42 | Day surgery (SDC) | payer MEDICARE, BC ==
[~2022-05-24 10:42] MED LIST changes: +ASPIRIN 325 MG TAB PO ONE; -ASPIRIN 325 MG TAB PO STA; +ATORVASTATIN 80 MG TAB PO ONE; -ATORVASTATIN 80 MG TAB PO STA; +HEPARIN SODIUM,PORCINE 10,000 UNIT in SODIUM CHLORIDE 0.9% 1,000 ML IRRIGATION PRN; +HEPARIN SODIUM,PORCINE 2,500 UNIT in SODIUM CHLORIDE 0.9% 250 ML IRRIGATION PRN; -SODIUM CHLORIDE 0.9% 1,000 ML in EMPTY BAG 1 BAG IV SCH
[2022-05-24 11:07] VITALS: RESP 18
[2022-05-24] MEDS: SODIUM CHLORIDE 0.9% 1,000 ML in EMPTY BAG 1 BAG IV SCH ×2 (11:07→17:04)
[2022-05-24 11:12] LABS: Glucose,Whole Blood 180 mg/dL (70-110)
[2022-05-24 11:28] LABS: Anisocytosis Slight; Basophils % (A) 0 %; Eosinophils # (A) 0.2 k/uL (0-0.7); Eosinophils % (A) 2 %; HGB 15.3 gm/dL (13.0-17.5); Hypochromasia Slight; Lymphocytes # (A) 1.1 k/uL (1.0-4.8); Lymphocytes % (A) 13 %; MCH 22.8 pg (25.0-35.0); MCHC 30.6 g/dL (31.0-37.0); MCV 74.6 fL (80.0-100.0); Mean Platelet Volume 7.4; Microcytosis Moderate; Monocytes # (A) 0.5 k/uL (0-1.0); Monocytes % (A) 6 %; Neutrophils # (A) 6.6 k/uL (1.3-7.7); Neutrophils % (A) 77 %; Platelet Count 187 k/uL (150-450); Poikilocytosis Slight; RBC 6.71 m/uL (4.30-5.90); RDW 18.4 % (11.5-15.5); WBC 8.6 k/uL (3.8-10.6)
[2022-05-24] MEDS ORDERED: VERAPAMIL 2.5 MG/ML 2 ML AMP ONE (13:22)
[2022-05-24] MEDS: BENZOCAINE SPRAY 1 CAN MUCOUS MEM ONE ×2 (13:25→13:31)
[2022-05-24] MEDS ORDERED: SODIUM CHLORIDE 0.9% 1,000 ML IV ONE (13:29)
[2022-05-24] MEDS ORDERED: MIDAZOLAM 2 MG/2 ML VIAL IV ONE ×2 (13:32→13:34)
[2022-05-24] MEDS ORDERED: fentaNYL (PF) 50 MCG/ML 2 ML AMP IV ONE (13:32)
[2022-05-24] MEDS ORDERED: LIDOCAINE 1% INJ 10MG/ML (30 ML VIAL-PF) SQ ONE (13:56)
[2022-05-24] MEDS ORDERED: IV FLUID CONTINUATION 400 ML IV ONE (14:06)
[2022-05-24] MEDS ORDERED: VERAPAMIL SYRINGE (5 MG/10 ML) INTRAARTER ONE ×2 (14:06→14:08)
[2022-05-24] MEDS ORDERED: HEPARIN SODIUM 1,000 UN/ML (10ML VL) ONE (14:20)
[2022-05-24] MEDS ORDERED: HEPARIN SODIUM 1,000 UN/ML (10ML VL) IV ONE (14:21)
[2022-05-24] MEDS ORDERED: IOPAMIDOL-370 100ML BTL INJ ONE (14:26)
[2022-05-24] MEDS ORDERED: RX INFO: IV CONTRAST WAS GIVEN 1 EACH MISC MISCELLANE PRN (14:32)
--- NOTE | 2022-05-24 14:37 | P.PCN ---
Date of Procedure: 05/24/22 Operative Findings: TRANSESOPHAGEAL ECHOCARDIOGRAM CHIEF MECHANICAL ENGINEER: ASHLEIGH ANSARI MD, RPVI INDICATION: Rule out intracardiac shunt SEDATION: Conscious sedation COMPLICATION: None LEVEL OF SEDATION Moderate sedation length of 15 minutes PROCEDURE DESCRIPTION: After obtaining an informed consent, the patient was brought to transesophageal echocardiogram room. Pulse oximetry and heart monitors were attached to the patient. The patient throat was sprayed using lidocaine. The patient was turned into left lateral position. After that a bite guard was placed. After an appropriate conscious sedation was initiated, the transesophageal echocardiogram was advanced through a bite guard into the mid esophagus. A 2-D echocardiogram images, color Doppler images, continuous wave images, pulse-wave images, of various cardiac structure were performed. After that the transesophageal echocardiogram probe was advanced into the stomach and fixed to obtain transgastric view was. The probe was brought into the mid esophagus. Inter-atrial septum was interrogated using 2D images, color Doppler images, and then contrast study. After that transesophageal echocardiogram was withdrawn out and upon withdrawing the descending thoracic aorta all the way up to the arch was evaluated. FINDING: The left ventricular dimension and systolic function appeared to be within normal limits with ejection fraction appears to be in the range of 55-60%. The right ventricle appeared to be mildly dilated. The right atrium appeared to be mildly dilated as well as. The left atrial appendage appears to be free from any thrombus. The interatrial septum appeared to be intact. There is no patent foramen ovale nor atrial septal defect. Upon injection of contrast there was delay of the bubble in the left atrium indicating possible pulmonary shunt. The aortic valve is trileaflet valve with no stenosis or regurgitation. The mitral valve seems to be mildly thickened with mild MR. There is moderate tricuspid regurgitation seen. No evidence of pericardial effusion identified CONCLUSION: 1. Normal left ventricular dimension and systolic function 2. Mildly dilated right ventricle with normal function 3. Moderate right atrial dilation. Normal left appendage. Intact interatrial septum. With the bubble study, the bubble identified in the left atrium after 5 seconds indicating possible pulmonary AVM 4. Trileaflet aortic valve with no stenosis or regurgitation 5. Mildly thickened mitral valve leaflets was mild MR 6. Moderate tricuspid regurgitation
[2022-05-24] MEDS ORDERED: SODIUM CHLORIDE 0.9% 1,000 ML IV SCH (14:45)
--- NOTE | 2022-05-24 14:51 | P.PCN ---
Date of Procedure: 05/24/22 Operative Findings: CARDIAC CATHETERIZATION PERFORMING PHYSICIAN: Kyler Matt MD, RPVI PROCEDURE PERFORMED: 1. Selective right and left coronary angiogram 2. Left heart catheterization 3. Right heart catheterization 4. Ultrasound-guided access of the right radial artery and the right common femoral vein INDICATION: Shortness of breath out of proportion to COPD. Also the patient does have coronary artery disease with prior stenting of the RCA and also he does have hypertension and dyslipidemia. He was experiencing shortness of breath and he was hypoxic requiring oxygen. Pulmonary etiology was ruled out. He was brought today to undergo transesophageal echocardiogram as well as heart catheterization COMPLICATION: None APPROACH: Right radial artery right common femoral vein LEVEL OF SEDATION: Moderate with a sedation length of 83 minutes PROCEDURE DESCRIPTION: After obtaining an informed consent, the patient was brought to cardiac labor delivery rn. Local anesthesia was performed using lidocaine subcutaneously. The right radial artery was cannulated using Seldinger technique, the guidewire passed easily, following that we advanced a 5-[place] sheath dilator assembly, the wire and dilator were removed and sheath was flushed. The right common femoral vein was cannulated using micropuncture technique under ultrasound guidance, the micropuncture wire passed easily then I placed a 6-[place] sheath. Following that, 2 mg of verapamil along with 5000 unit heparin were given. after that I did right heart catheterization using 6-[place] catheter. Selective right and left coronary angiogram using a 6-[place] JR4 and JL 3.5 catheters. Following that we did left heart catheterization using 6-[place] pigtail catheter. The procedure was completed there was no complication. SELECTIVE CORONARY ANGIOGRAM: The right coronary artery: Large-caliber vessel and a dominant vessel. The RCA is a stented in the midportion and the stent is patent. The mid RCA distal to the stented segment has a moderate disease in the range of 40-50%. Left main: Has mild disease only. The left circumflex: Large-caliber vessel and nondominant dominant vessel. The LCx system appears to be angiographically normal in the LCx gives rises into an OM branch which appeared to be angiographically normal. The left anterior descending artery: The LAD appears to be angiographically normal. The LAD does reach the apex. HEMODYNAMICS: The left ventricular end-diastolic pressure was 10 mmHg The pulmonary capillary wedge pressure was 20 mmHg The pulmonary artery pressures were as follow systolic of 75 and end-diastolic of 28 and mean of 44 mmHg Right ventricular pressures as follow systolic 77 mmHg and in diastole of 12 mmHg Right atrial pressure was 8 mmHg The cardiac output was 5.80 L/m with a cardiac index of 2.68 L per minute per meter square The transpulmonary gradient was 24 mmHg The pulmonary vascular resistance was 4.23 Ruiz unit CONCLUSION: 1. Pulmonary hypertension. The mean pulmonary artery systolic pressure was 44 mmHg. Differential diagnosis is WHO group 1 versus group 3 2. Mild nonobstructive coronary artery disease POSTPROCEDURE MANAGEMENT: Medical treatment and follow-up with the patient
[2022-05-24 22:03] VITALS: TEMP 98
[2022-05-24 22:11] VITALS: BP 132/76; PULSE 54
== END 2022-05-24 22:17 | disposition home or self-care (01) ==
LOC: CATHCVL 10:42 → 6NMEDSUR 16:02 → CATHCVL 22:17
PROVIDERS: ATTEND Internal Medicine Interventional Cardiology
DX: I25.10 Atherosclerotic heart disease of native coronary artery without angina pectoris (principal); Z95.5 Presence of coronary angioplasty implant and graft; I27.20 Pulmonary hypertension, unspecified; I10 Essential (primary) hypertension; E78.5 Hyperlipidemia, unspecified; J44.9 Chronic obstructive pulmonary disease, unspecified; Z79.01 Long term (current) use of anticoagulants; F17.210 Nicotine dependence, cigarettes, uncomplicated; E11.9 Type 2 diabetes mellitus without complications; Z79.84 Long term (current) use of oral hypoglycemic drugs; Z79.82 Long term (current) use of aspirin; Z79.899 Other long term (current) drug therapy; Z79.02 Long term (current) use of antithrombotics/antiplatelets
CPT/HCPCS: 93460; 93312; 93320; 93325; 76937; 85025; 93308; C1769 ×2; C1894; C1751; C1760; J2250; J2001; J3010; J1644; Q9967

== ENCOUNTER → 2022-09-12 | Outpatient (CLI) | payer MEDICARE, BC ==
--- NOTE | 2022-09-13 11:51 | CT ---
EXAMINATION TYPE: CT chest wo con DATE OF EXAM: 09/12/2022 COMPARISON: 04/10/2022 HISTORY: Lung nodules. Other non specific abnormality of lung field. CT DLP: [address] of the chest was performed with lung and mediastinal window settings submitted. The la ck of contrast limits evaluation of the vascular, mediastinal and parenchymal structures including th e upper abdomen. LUNGS: Left apical scarring is stable. Mild changes of underlying emphysema. Calcified granulomas are again noted compatible with remote granulomatous disease. Groundglass infiltrate in the region of th e right upper lobe may reflect acute inflammatory change. Correlate clinically. 4 mm pulmonary nodule lateral segment right middle lobe image 40 sequence 4. Right lower lobe pulmonary nodule measuring 4 mm image 41 sequence 4 they have been present previously. Direct comparison is difficult. No volume loss or pleural effusion. MEDIASTINUM/YOSSI: Thoracic aorta is of normal caliber with limited evaluation given lack of contrast . The heart is not enlarged. No evidence for mediastinal mass. Stable 1.1 cm AP window lymph node. Stable 1.4 cm right paratracheal lymph node. Scattered additional subcentimeter lymph nodes seen. Nod ule likely noted lower pole right thyroid lobe is unchanged. Ultrasound correlation recommended. UPPER ABDOMEN: No significant abnormality is seen. OTHER: No significant other abnormality. IMPRESSION: 1. Calcified and noncalcified pulmonary nodules all of which measure less than 6 mm. Annual follow-u p advised. 2 nonspecific mediastinal adenopathy is stable.
== END | disposition home or self-care (01) ==
LOC: RADCTMAIN 16:27
PROVIDERS: ATTEND Family Medicine
DX: R91.8 Other nonspecific abnormal finding of lung field (principal); R59.0 Localized enlarged lymph nodes
CPT/HCPCS: 71250